=== PATIENT | male | born 1995 | race American Indian/Alaskan Native ===

== ENCOUNTER 2022-08-16 16:20 | Observation (INO) | payer SELFPAY ==
[2022-08-16] MEDS ORDERED: Albuterol 0.083% 2.5 MG/3 ML Neb Soln NEB PRN (17:11)
[2022-08-16] MEDS ORDERED: Ondansetron 4 MG/2 ML SDV IV PRN (17:11)
[2022-08-16] MEDS ORDERED: Magnesium Hydroxide 400 MG/5 ML Susp 30 ML Cup PO PRN (17:11)
[2022-08-16] MEDS ORDERED: oxyCODONE 5 MG Tab PO PRN (17:11)
[2022-08-16] MEDS ORDERED: Ondansetron 4 MG Tab.DIS PO PRN (17:11)
[2022-08-16] MEDS: Sodium Chloride 0.9% 1,000 ML IV SCH (17:38)
[2022-08-16] MEDS: cefTRIAXone 2 GM in Sodium Chloride 0.9% 50 ML IV SCH (17:39)
[2022-08-16] MEDS: Melatonin 3 MG Tab PO PRN (21:05)
[2022-08-16] MEDS: Lactobacillus Rhamnosus GG (Probiotic) Cap PO SCH (21:05)
[2022-08-16] MEDS: Codeine/guaiFENesin 10-100 MG/5 ML Syrup 5 ML Cup PO PRN (21:05)
[2022-08-17] MEDS: Benzonatate 100 MG Cap PO PRN ×3 (03:03→21:50)
[2022-08-17] MEDS: Codeine/guaiFENesin 10-100 MG/5 ML Syrup 5 ML Cup PO PRN ×4 (03:03→23:21)
[2022-08-17] MEDS: Acetaminophen 325 MG Tab PO PRN ×3 (03:04→21:43)
[2022-08-17] MEDS: Sodium Chloride 0.9% 1,000 ML IV SCH (03:05)
[2022-08-17] MEDS: Levofloxacin/Dextrose 5%-Water 750 MG in Premix Bag 1 BAG IV SCH (08:36)
[2022-08-17] MEDS: Lactobacillus Rhamnosus GG (Probiotic) Cap PO SCH ×2 (08:36→21:45)
[2022-08-17] MEDS: Ibuprofen 600 MG Tab PO PRN ×2 (08:37→17:51)
[2022-08-17] MEDS ORDERED: Azithromycin 250 MG Tab PO SCH (09:00)
[2022-08-17] MEDS: cefTRIAXone 2 GM in Sodium Chloride 0.9% 50 ML IV SCH (17:51)
[2022-08-17] MEDS: Melatonin 3 MG Tab PO PRN ×2 (21:44→23:20)
[2022-08-18] MEDS: Ibuprofen 600 MG Tab PO PRN ×3 (03:20→20:48)
[2022-08-18] MEDS: Acetaminophen 325 MG Tab PO PRN ×3 (09:36→23:02)
[2022-08-18] MEDS: Codeine/guaiFENesin 10-100 MG/5 ML Syrup 5 ML Cup PO PRN ×3 (09:36→23:51)
[2022-08-18] MEDS: Lactobacillus Rhamnosus GG (Probiotic) Cap PO SCH ×2 (09:37→20:48)
[2022-08-18] MEDS: Levofloxacin/Dextrose 5%-Water 750 MG in Premix Bag 1 BAG IV SCH (09:47)
[2022-08-18] MEDS: Benzonatate 100 MG Cap PO PRN ×2 (12:37→20:49)
[2022-08-18] MEDS: cefTRIAXone 2 GM in Sodium Chloride 0.9% 50 ML IV SCH (17:47)
[2022-08-18] MEDS: Melatonin 3 MG Tab PO PRN (23:51)
[2022-08-19] MEDS: Benzonatate 100 MG Cap PO PRN (08:04)
[2022-08-19] MEDS: Ibuprofen 600 MG Tab PO PRN (08:04)
[2022-08-19] MEDS: Levofloxacin/Dextrose 5%-Water 750 MG in Premix Bag 1 BAG IV SCH (08:13)
[2022-08-19] MEDS: Lactobacillus Rhamnosus GG (Probiotic) Cap PO SCH (10:09)
== END 2022-08-19 13:45 | disposition home or self-care (01) ==
LOC: JP.MS 16:20
PROVIDERS: ADMIT Internal Medicine; ATTEND Internal Medicine
DX: J18.9 Pneumonia, unspecified organism (principal); D72.829 Elevated white blood cell count, unspecified; F17.210 Nicotine dependence, cigarettes, uncomplicated; Z79.899 Other long term (current) drug therapy
CPT/HCPCS: 36415; 80048; 85027; 87070; 87205; 90686; A9270; J0696; J1956; J7030; Q0162; 96361; 96365; 96366; 96367; 96376; G0378